=== PATIENT | female | born 1975 | race Caucasian/White ===

== ENCOUNTER 2019-04-03 07:26 | Emergency (ER) | payer BC, MEDICAID, OTHER ==
--- NOTE | 2019-04-03 07:33 | EDM.PDOC ---
ED HPI GENERAL MEDICAL PROBLEM - General Stated Complaint: FLU Time Seen by Provider: 04/03/19 07:33 Source of Information: Reports: Patient - History of Present Illness INITIAL COMMENTS - FREE TEXT/NARRATIVE: HISTORY AND PHYSICAL: History of present illness: [Brian presents with sore throat ear pain persistent productive cough for 3weeks diagnosed with influenza A last month symptoms have persisted since no fever nausea vomiting at current she does have intermittent chills sweats sore throat no muffled voice drooling or trismus ] Review of systems: As per history of present illness and below otherwise all systems reviewed and negative. Past medical history: As per history of present illness and as reviewed below otherwise noncontributory. Surgical history: As per history of present illness and as reviewed below otherwise noncontributory. Social history: No reported history of drug or alcohol abuse. Family history: As per history of present illness and as reviewed below otherwise noncontributory. Physical exam: HEENT: Atraumatic, normocephalic, pupils reactive, negative for conjunctival pallor or scleral icterus, mucous membranes moist, throat clear, neck supple, nontender, trachea midline. Pain right greater than left pain with movement of the auricle is no mastoid tenderness no meningeal signs Lungs: Clear to auscultation, breath sounds equal bilaterally, chest nontender. Heart: S1S2, regular, negative for clicks, rubs, or JVD. Abdomen: Soft, nondistended, nontender. Negative for masses or hepatosplenomegaly. Negative for costovertebral tenderness. Pelvis: Stable nontender. Genitourinary: Deferred. Rectal: Deferred. Extremities: Atraumatic, negative for cords or calf pain. Neurovascular unremarkable. Neuro: Awake, alert, oriented. Cranial nerves II through XII unremarkable. Cerebellum unremarkable. Motor and sensory unremarkable throughout. Exam nonfocal. Diagnostics: [influenza]/strep 1 view Therapeutics: [levoquin 500mg po daily hfa prednisone ] Impression: [sinusSitus Persistent cough] Definitive disposition and diagnosis as appropriate pending reevaluation and review of above. Throat Pain Score (Numeric/FACES): 8 - Related Data Allergies Allergy/AdvReac Type Severity Reaction Status Date / Time Sulfa (Sulfonamide Allergy Severe Anaphylactic Verified 04/03/19 07:41 Antibiotics) Shock Home Meds: Home Meds . [No Known Home Meds] 02/07/18 [History] Past Medical History - Infectious Disease History Infectious Disease History: Reports: Chicken Pox - Past Surgical History GI Surgical History: Reports: Other (See Below) Other GI Surgeries/Procedures: vertical sleeve gastrectomy Neurological Surgical History: Reports: Discectomy Social & Family History - Family History Family Medical History: Noncontributory - Caffeine Use Caffeine Use: Reports: Coffee ED ROS GENERAL - Review of Systems Review Of Systems: See Below ED EXAM, GENERAL - Physical Exam Exam: See Below Course - Vital Signs Last Recorded V/S: Last Vital Signs Temp 98.6 F 04/03/19 07:37 Pulse 74 04/03/19 07:37 Resp 20 04/03/19 07:37 BP 128/95 H 04/03/19 07:37 Pulse Ox 95 04/03/19 07:37 - Orders/Labs/Meds Orders: Active Orders 24 hr Category Date Time Status Chest 1V Frontal [CR] Stat Exams 04/03/19 07:47 Taken CULTURE STREP A CONFIRMATION [RM] Stat Lab 04/03/19 07:43 Results STREP SCRN A RAPID W CULT CONF [RM] Stat Lab 04/03/19 07:43 Results Departure - Departure Time of Disposition: 08:07 Disposition: Home, Self-Care 01 Condition: Good Clinical Impression: Sinusitis, Pharyngitis, Otitis externa - Discharge Information Referrals: Chandra Rowland MD [Primary Care Provider] - Additional Instructions: The following information is given to patients seen in the emergency department who are being discharged to home. This information is to outline your options for follow-up care. We provide all patients seen in our emergency department with a follow-up referral. The need for follow-up, as well as the timing and circumstances, are variable depending upon the specifics of your emergency department visit. If you don't have a primary care physician on staff, we will provide you with a referral. We always advise you to contact your personal physician following an emergency department visit to inform them of the circumstance of the visit and for follow-up with them and/or the need for any referrals to a consulting specialist. The emergency department will also refer you to a specialist when appropriate. This referral assures that you have the opportunity for follow-up care with a specialist. All of these measure are taken in an effort to provide you with optimal care, which includes your follow-up. Under all circumstances we always encourage you to contact your private physician who remains a resource for coordinating your care. When calling for follow-up care, please make the office aware that this follow-up is from your recent emergency room visit. If for any reason you are refused follow-up, please contact the [facility] emergency department at and asked to speak to the emergency department charge nurse. Sepsis Event Note - Focused Exam Vital Signs: Vital Signs Temp Pulse Resp BP Pulse Ox 04/03/19 07:37 98.6 F 74 20 128/95 H 95 Date Exam was Performed: 04/03/19 Time Exam was Performed: 08:05 - My Orders Last 24 Hours: My Active Orders 04/03/19 07:43 CULTURE STREP A CONFIRMATION [RM] Stat STREP SCRN A RAPID W CULT CONF [RM] Stat 04/03/19 07:47 Chest 1V Frontal [CR] Stat - Assessment/Plan Last 24 Hours: My Active Orders 04/03/19 07:43 CULTURE STREP A CONFIRMATION [RM] Stat STREP SCRN A RAPID W CULT CONF [RM] Stat 04/03/19 07:47 Chest 1V Frontal [CR] Stat
--- NOTE | 2019-04-03 08:35 | CR ---
Chest: Portable view of the chest was obtained. Comparison: No prior chest imaging. Heart size and mediastinum are normal. Lungs are clear. Bony structures are unremarkable. Impression: 1. Nothing acute is appreciated on portable chest x-ray. Diagnostic code #1 This report was dictated in [place] Standard Time
== END 2019-04-03 08:20 | disposition home or self-care (01) ==
LOC: MW.ED 07:26
DX: J32.9 Chronic sinusitis, unspecified (principal); J02.9 Acute pharyngitis, unspecified; H60.93 Unspecified otitis externa, bilateral; Z88.2 Allergy status to sulfonamides
CPT/HCPCS: 71045; 71045-26; 87081; 87880-QW; 99283; 99283-25